=== PATIENT | male | born 2005 | race Hispanic/Latino ===

== ENCOUNTER 2024-10-10 15:51 | Emergency (ER) | payer SELFPAY ==
[2024-10-10] MEDS ORDERED: Lidocaine 1% (PF) 30 ML VIAL ONE (15:59)
[2024-10-10] MEDS ORDERED: Boostrix 0.5 ML (Tdap) VIAL (>/=7 yrs of age) ONE (17:08)
[2024-10-10] MEDS ORDERED: Bacitracin 1 PK ONE (17:15)
== END 2024-10-10 17:30 | disposition home or self-care (01) ==
LOC: NAV ERS 15:51
DX: S61.412A Laceration without foreign body of left hand, initial encounter (principal); Z23 Encounter for immunization; W26.0XXA Contact with knife, initial encounter
CPT/HCPCS: 12001; 90471; 90715